=== PATIENT | female | born 1990 | race Caucasian/White ===

== ENCOUNTER 2016-08-11 01:37 | Observation (INO) | payer OTHER, SELFPAY ==
[~2016-08-11] VITALS: Ht 147.3 cm; Wt 95.0 kg
[2016-08-11 02:36] LABS: MEAN CORPUSCULAR HEMOGLOBIN 28.7 pg (27.0-33.0); MEAN CORPUSCULAR HGB CONC 33.4 g/dl (32.0-36.5); RED CELL DISTRIBUTION WIDTH 13.7 % (11.5-14.5); WHITE BLOOD COUNT 20.3 K/mm3 (4.0-10.0)
[2016-08-11 02:58] LABS: ALBUMIN 2.5 GM/DL (3.2-5.2); ALBUMIN/GLOBULIN RATIO 0.71 (1.00-1.93); ALKALINE PHOSPHATASE 175 U/L (45-117); ALT/SGPT 21 U/L (12-78); AMYLASE 54 U/L (25-115); ANION GAP 13 MEQ/L (8-16); AST/SGOT 17 U/L (15-37); BILIRUBIN,TOTAL 0.2 MG/DL (0.2-1.0); BLOOD UREA NITROGEN 9 MG/DL (7-18); CALCIUM LEVEL 8.1 MG/DL (8.5-10.1); CARBON DIOXIDE LEVEL 21 MEQ/L (21-32); CHLORIDE LEVEL 107 MEQ/L (98-107); CREATININE FOR GFR 0.58 MG/DL (0.55-1.02); GLOMERULAR FILTRATION RATE > 60.0 (>60); GLUCOSE, FASTING 84 MG/DL (70-105); POTASSIUM SERUM 3.9 MEQ/L (3.5-5.1); SODIUM LEVEL 141 MEQ/L (136-145)
[2016-08-11] MEDS ORDERED: PRENTAB55 PO (03:05)
[2016-08-11] MEDS ORDERED: PERCOCET 5MG/325MG TAB PO PRN (03:45)
[2016-08-11] MEDS ORDERED: ONDANSETRON 4MG/2ML VIAL (J2405) IV PRN (03:45)
[2016-08-11] MEDS ORDERED: DOCUSATE SODIUM 100 MG CAP PO PRN (03:45)
[2016-08-11] MEDS ORDERED: MORPHINE 2 MG/ML 1ML SYRINGE IV PRN (03:45)
[2016-08-11] MEDS ORDERED: cefTRIAXone SOD 1 GM in D5W MINI-BAG PLUS 50 ML IV SCH ×4 (04:00)
[2016-08-11 04:16] VITALS: BP 108/57
[2016-08-11] MEDS: LR 1,000 ML IV SCH ×3 (04:16→19:37)
[2016-08-11] MEDS: PRENATAL VITAMIN TAB PO SCH (08:00)
[2016-08-11] MEDS: PERCOCET 5MG/325MG TAB PO PRN ×2 (09:03→19:37)
[2016-08-11 10:00] VITALS: BP 103/57
[2016-08-11 14:05] VITALS: BP 121/64
[2016-08-11 15:00] VITALS: BP 117/53
[2016-08-11 16:00] VITALS: BP 91/51
[2016-08-11] MEDS: cefTRIAXone SOD 1 GM in D5W MINI-BAG PLUS 50 ML IV SCH (16:17)
[2016-08-11 20:00] VITALS: BP 102/47
[2016-08-12] MEDS: LR 1,000 ML IV SCH (03:38)
[2016-08-12 04:00] VITALS: BP 97/50
[2016-08-12] MEDS: cefTRIAXone SOD 1 GM in D5W MINI-BAG PLUS 50 ML IV SCH (04:00)
[2016-08-12] MEDS: PERCOCET 5MG/325MG TAB PO PRN (04:59)
[2016-08-12 08:00] VITALS: BP 111/53
[2016-08-12] MEDS: PRENATAL VITAMIN TAB PO SCH (09:22)
== END 2016-08-12 09:40 | disposition home or self-care (01) ==
LOC: M LDO 01:37 → M OBS 03:39 → M PED 15:05
PROVIDERS: ADMIT Obstetrics & Gynecology; ATTEND Obstetrics & Gynecology
DX: O26.833 Pregnancy related renal disease, third trimester (principal); N20.0 Calculus of kidney; Z3A.36 36 weeks gestation of pregnancy
CPT/HCPCS: 36415; 59025; 80053; 81001; 82150; 82360; 83690; 85027; 87086; 88300; 96374; 96376; J0696

== ENCOUNTER 2016-09-13 07:07 | Inpatient (IN) | payer OTHER ==
[2016-09-13] VITALS (36 sets, daily range): BP systolic 92–130; BP diastolic 50–70
[~2016-09-13] VITALS: Ht 147.3 cm; Wt 95.0 kg
[~2016-09-13 07:07] MED LIST: PRENTAB55 PO
[2016-09-13 08:43] LABS: MEAN CORPUSCULAR HEMOGLOBIN 27.4 pg (27.0-33.0); MEAN CORPUSCULAR HGB CONC 32.7 g/dl (32.0-36.5); MEAN CORPUSCULAR VOLUME 83.6 fl (80.0-96.0); RED CELL DISTRIBUTION WIDTH 14.3 % (11.5-14.5); WHITE BLOOD COUNT 17.8 K/mm3 (4.0-10.0)
[2016-09-13] MEDS: LR 1,000 ML IV SCH ×2 (09:02→18:49)
[2016-09-13] MEDS: OXYTOCIN DRIP 30 UNITS in APPROPRIATE DILUENT 1 EA IV SCH (09:11)
[2016-09-13 10:29] LABS: HBSAG L&D NEGATIVE (NEGATIVE)
[2016-09-13] MEDS ORDERED: FENTANYL 2MCG/ML ROPIVACAINE 0.2% IN 0.9% NACL 200ML IVBAG As Ordered ONE (22:52)
[2016-09-14] VITALS (82 sets, daily range): BP systolic 87–141; BP diastolic 42–67
[2016-09-14] MEDS: ePHEDrine SULFATE 25 MG/5 ML(5MG/ML) SYRINGE IV PRN ×3 (00:08→00:11)
[2016-09-14] MEDS: LR 1,000 ML IV SCH (00:09)
[2016-09-14] MEDS ORDERED: ONDANSETRON 4MG/2ML VIAL (J2405) As Ordered ONE (00:15)
[2016-09-14] MEDS: FENTANYL/ROPIVACAINE/NACL BAG 200 ML EPIDURAL SCH ×3 (01:00→14:21)
[2016-09-14] MEDS ORDERED: diphenhydrAMINE INJ 50MG/ML VIAL (J1200) IV PRN (01:00)
[2016-09-14] MEDS ORDERED: EPIDURAL COMMENT XX SCH (01:00)
[2016-09-14] MEDS ORDERED: EPIDURAL/PCA KEYS XX PRN (01:00)
[2016-09-14] MEDS ORDERED: NALOXONE INJ 0.4 MG/1 ML VIAL (J2310) IV PRN (01:00)
[2016-09-14] MEDS ORDERED: ONDANSETRON 4MG/2ML VIAL (J2405) IV PRN (01:00)
[2016-09-14] MEDS ORDERED: REFRIGERATOR IV KEYS XX PRN (01:00)
[2016-09-14] MEDS: LACTATED RINGER'S 1000 ML IV PRN ×2 (01:20→07:28)
--- NOTE | 2016-09-14 06:48 | IPNPDOC ---
Text Note Date of Service The patient was seen on 09/14/16. NOTE [place] is a 26yo with SIUP at 41w1d currently undergoing IOL for LTG. Has hx of prior section for arrest of labor in the setting of chorioamnionitis. Was offered PLTCS since 41wk with unfavorable cervix, but declined and desired to proceed with TOLAC. Yesterday morning iol was begun with cook catheter which fell out around 1500 yesterday afternoon with low dose pitocin going. Overnight pitocin was decreased while she received an epidural because it was difficult to do monitoring and then she was kept at low dose secondary to busy OR. 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 She is currently at pit of 8. Cat I FHRT. UOP has been minimal overnight, so recently ordered bolus 500ml IVF. SCE at 0630: 4/50/-2. AROM performed with clear copious fluid noted. IUPC placed to better titrate pitocin. Patient is comfortable with epidural. Plan is to now increase pitocin to adequate MVUs. Safe to proceed. Dr. Erna Escalona MD VS,Nichol, I+O VS, Nichol I+O Laboratory Tests 09/13/16 08:34 Red Blood Count 3.50 L, Mean Corpuscular Volume 83.6, Mean Corpuscular Hemoglobin 27.4, Mean Corpuscular Hemoglobin Concent 32.7, Red Cell Distribution Width 14.3 Vital Signs Date Time Temp Pulse Resp B/P (MAP) Pulse Ox O2 Delivery O2 Flow Rate FiO2 09/14/16 05:36 97 102/55 (71) 09/14/16 04:35 98.3 20 I&O- Last 24 Hours up to 6 AM 09/14/16 06:00 Intake Total 5391 ml Output Total 400 ml Balance 4991 ml ERNA ESCALONA MD Sep 14, 2016 06:48
[2016-09-14] MEDS: ePHEDrine SULFATE 25 MG/5 ML(5MG/ML) SYRINGE IV SCH ×2 (08:04→08:05)
[2016-09-14] MEDS ORDERED: LACTATED RINGER'S 1000 ML IV ONE (08:15)
[2016-09-14] MEDS ORDERED: LACTATED RINGER'S 1000 ML IV PRN (08:15)
[2016-09-14] MEDS: OXYTOCIN DRIP 30 UNITS in APPROPRIATE DILUENT 1 EA IV SCH (08:57)
[2016-09-14] MEDS: PRENATAL VITAMIN TAB PO SCH (09:00)
[2016-09-14] MEDS ORDERED: LIDOCAINE PRES-FREE 2% 10ML AMP As Ordered ONE (14:36)
[2016-09-14] MEDS ORDERED: OXYTOCIN DRIP 30 UNITS in APPROPRIATE DILUENT 1 EA IV SCH (15:26)
[2016-09-14] MEDS ORDERED: ACETAMINOPHEN 500 MG TAB PO PRN (15:30)
[2016-09-14] MEDS ORDERED: DOCUSATE SODIUM 100 MG CAP PO PRN (15:30)
[2016-09-14] MEDS ORDERED: IBUPROFEN 800 MG TAB PO PRN (15:30)
[2016-09-14] MEDS ORDERED: RHOGAM 300 MCG (1500 IU) INJ (J2790) IM SCH (15:30)
[2016-09-14] MEDS ORDERED: MEASLES,MUMPS,RUBELLA VACCINE INJ (MMR-II) (90707) SC SCH (15:30)
[2016-09-14] MEDS ORDERED: DIBUCAINE 1% OINTMENT 30GM TOP PRN (15:30)
[2016-09-14] MEDS ORDERED: METHYLERGONOVINE MALEATE 0.2 MG TAB PO PRN (15:30)
[2016-09-15 05:37] VITALS: BP 109/57
[2016-09-15 18:10] VITALS: BP 110/64
[2016-09-16 06:05] VITALS: BP 112/59
[2016-09-16] MEDS: PRENATAL VITAMIN TAB PO SCH ×3 (07:58→08:32)
[2016-09-16] MEDS ORDERED: IBUP-1114 PO (08:23)
[2016-09-16] MEDS ORDERED: ACET50TA PO (08:23)
--- NOTE | 2016-09-16 09:45 | IPNPDOC ---
Progress Note Date of Service The patient was seen on 09/16/16 at 08:34. Progress Note PPD 2 [place] is a 26y/o [id number] s/p uncomplicated after IOL for LTG. She is doing very well. Tolerating regular diet, voiding without problem. Reports decreasing lochia and without issues. Undecided on contraception in the future. O: Vitals wnl, afebrile General: A&Ox3, NAD Abdomen: Fundus @ U-2cm, soft, non-tender Extremities: no pain with palpation of calves A/P: [place] is a 26y/o [id number] s/p uncomplicated after IOL for LTG. Vitals wnl, benign exam. Hemodynamically stable with no e/o infection. -Discharge to home today -Follow up in clinic for 6wk PP visit -Return precautions discussed for fevers/chills, increasing abdominal pain, heavy vaginal bleeding, foul smelling discharge, redness/pain of breasts -Home meds: motrin and lanolin Erna Escalona MD [facility] [place][note 3] VS, I&O, 24H, Fishbone Vital Signs/I&O Vital Signs Date Time Temp Pulse Resp B/P (MAP) Pulse Ox O2 Delivery O2 Flow Rate FiO2 09/16/16 06:05 97.9 73 18 112/59 (76) I&O- Last 24 Hours up to 6 AM 09/16/16 06:00 Intake Total 960 ml Balance 960 ml ERNA ESCALONA MD Sep 16, 2016 09:45
== END 2016-09-16 09:56 | disposition home or self-care (01) | DRG 775 ==
LOC: M LDI 07:07 → M OBS 09-14 17:00
PROVIDERS: ADMIT Obstetrics & Gynecology; ATTEND Obstetrics & Gynecology
PROC: 3E033VJ Introduction of Other Hormone into Peripheral Vein, Percutaneous Approach (ICD-10-PCS; 2016-09-13)
PROC: 10E0XZZ Delivery of Products of Conception, External Approach (ICD-10-PCS; principal; 2016-09-14)
PROC: 10907ZC Drainage of Amniotic Fluid, Therapeutic from Products of Conception, Via Natural or Artificial Opening (ICD-10-PCS; 2016-09-14)
DX: O48.0 Post-term pregnancy (principal); Z37.0 Single live birth; Z3A.41 41 weeks gestation of pregnancy; O34.211 Maternal care for low transverse scar from previous cesarean delivery; Z79.899 Other long term (current) drug therapy; E66.9 Obesity, unspecified; Z68.39 Body mass index [BMI] 39.0-39.9, adult; O64.5XX0 Obstructed labor due to compound presentation, not applicable or unspecified; O69.82X0 Labor and delivery complicated by other cord entanglement, without compression, not applicable or unspecified; O43.193 Other malformation of placenta, third trimester; O99.214 Obesity complicating childbirth

== ENCOUNTER → 2017-04-11 | Outpatient (CLI) | payer OTHER | LOC: M RAD 14:32 | DX: Z09 Encounter for follow-up examination after completed treatment for conditions other than malignant neoplasm (principal); N88.8 Other specified noninflammatory disorders of cervix uteri; N85.4 Malposition of uterus | CPT/HCPCS: 76856 ==

== ENCOUNTER → 2017-04-24 | Outpatient (CLI) | payer OTHER | LOC: M RAD 09:52 | DX: Z09 Encounter for follow-up examination after completed treatment for conditions other than malignant neoplasm (principal); N83.202 Unspecified ovarian cyst, left side | CPT/HCPCS: 76856 ==